=== PATIENT | female | born 1980 | race Caucasian/White ===

== ENCOUNTER 2016-11-09 14:25 | Emergency (ER) | payer MEDICAID ==
--- NOTE | 2016-11-09 15:22 | ERNOTE ---
Trauma/Assault HPI - Narrative Date of Service: 11/09/16 - General Stated Complaint: FELL OFF HORSE AND HIT CHIN Time Seen by Provider: 11/09/16 15:03 Source: patient, RN notes reviewed Exam Limitations: no limitations - Immun/Allergies/Home Medications Immunizations: IMMUNIZATION HX Immunizations Up to Date Yes History of Influenza Vaccine Yes Hx Pneumococcal Vaccination No Allergies/Adverse Reactions: Allergies metronidazole [From Flagyl] Adverse Reaction (Verified 11/09/16 14:39) Home Medications: HOME MEDICATIONS Gabapentin 300 mg PO BID 11/09/16 [Last Taken Unknown] Nortriptyline HCl 10 mg PO DAILY 11/09/16 [Last Taken Unknown] - History of Present Illness Date (Duration): 11/09/16 Narrative: 35 y/o female ambulatory to the ED after being bucked off of her horse. She reports landing in a [place] field. She is having low back pain and has an abrasion under her chin and inside of her lower lip. Location Occurred: Reports: home Pain Location: Reports: other - chin, lower back Loss of Consciousness: Reports: no loss of consciousness, remembers the event, remembers coming to hospital Associated Symptoms - Trauma: Denies: headache, confusion, dizziness, lightheadedness, slurred speech, trouble walking, vision changes, neck pain, chest pain, shortness of breath, abdominal pain, nausea, vomiting, muscle spasms Review of Systems - Review of Systems Constitutional: Present: no symptoms reported EYE: Present: see HPI ENT: Absent: ear discharge, nasal drainage, other - loose teeth Respiratory: Absent: shortness of breath, wheezing Cardiology: Absent: chest pain, syncope Gastrointestinal/Abdominal: Absent: nausea, vomiting, abdominal pain Genitourinary: Present: no symptoms reported Musculoskeletal: Present: back pain. Absent: neck pain, joint pain, joint swelling Skin: Absent: lesions, lumps, change in color Neurological: Absent: headache, dizziness/light-headedness Endocrine: Present: no symptoms reported Hematologic/Lymphatic: Absent: easy bruising, easy bleeding Psych: Present: no symptoms reported - Patient's Past Medical History Patient History - Medical: Migraines Patient History - Cardiac/Respiratory: No pertinent hx Patient History - Cancer: No Hx of Cancer Patient History - Surgical Procedures: Patient History - Other: None LMP (females 10-50): 1 month - Social History Living Situations: home Psych History: Hx of Depression Smoking Status: Current every day smoker Alcohol Use: none Drug Use: none - Immunizations Immunizations Up to Date: Yes - Reports tetanus is up to date Hx Pneumococcal Vaccination: No History of Influenza Vaccine: Yes Physical Exam - Physical Exam General Appearance: Present: wd/wn, alert, no apparent distress Eye Exam: Normal inspection: bilateral, PERRL: bilateral, EOMI: bilateral Ears, Nose, Throat: Present: normal except - - mild abrasion under chin, mild abrasion inside lower lip, other - No facial deformity, tenderness or edema Neck: Present: normal inspection, nontender, supple, full range of motion. Absent: tender lateral, tender posterior midline Respiratory: Present: no respiratory distress, normal breath sounds, no accessory muscle use, lungs clear Cardiovascular/Chest: Present: regular rate, rhythm, no murmur, normal peripheral pulses Back Exam: Present: normal inspection, normal range of motion, no CVA tenderness , no vertebral tenderness, other - mild lumbar region muscle tenderness with palpation Extremity Exam: Present: normal inspection, normal range of motion, no edema Neurological Exam: Present: alert, oriented, normal mood/affect, no motor/ sensory deficits Skin Exam: Present: normal color, warm/dry ED Progress - Vital Signs Patient's Vital Signs:: I have reviewed the patient's vital signs. Vital Signs: Vital Signs 11/09/16 11/09/16 11/09/16 14:31 14:46 15:00 Temperature 37.0 C Pulse Rate 96 91 71 Respiratory 15 17 Rate Blood Pressure 124/74 130/74 171/77 O2 Sat by Pulse 97 97 97 Oximetry - Progress/Reassessment Chief Complaint: Fall Progress:: Unchanged Departure Clinical Impression: Abrasion Fall from horse Qualifiers: Encounter type: initial encounter Qualified Code(s): V80.010A - Animal-rider injured by fall from or being thrown from horse in noncollision accident, initial encounter - Departure Disposition: Home self-care Condition: Good Instructions: Contusion, [id number] Additional Instructions: Ice to sore areas, Tylenol and/or ibuprofen for pain, Follow up with your doctor as needed Referrals: Gabi James MD [Primary Care Provider] -
[2016-11-09 16:10] VITALS: BP 134/70
== END 2016-11-09 15:30 | disposition home or self-care (01) ==
LOC: ER 14:25
DX: S00.81XA Abrasion of other part of head, initial encounter (principal); F17.200 Nicotine dependence, unspecified, uncomplicated; V80.010A Animal-rider injured by fall from or being thrown from horse in noncollision accident, initial encounter